=== PATIENT | male | born 2000 | race Caucasian/White ===

== ENCOUNTER → 2020-06-01 | Outpatient (CLI) | payer SELFPAY | LOC: M LABSMTC 12:55 | PROVIDERS: ATTEND Pediatrics | DX: Z11.59 Encounter for screening for other viral diseases (principal); Z20.828 Contact with and (suspected) exposure to other viral communicable diseases ==

== ENCOUNTER 2021-08-06 10:10 | Emergency (ER) | payer OTHER, SELFPAY ==
[~2021-08-06] VITALS: Ht 190.5 cm; Wt 98.8 kg
[2021-08-06] MEDS ORDERED: KETOROLAC 60MG 2ML VIAL IM ONE (11:05)
--- NOTE | 2021-08-06 11:44 | REP ---
INDICATION: Back pain x 7 mos. COMPARISON: None. TECHNIQUE: Three AP and lateral views thoracic spine. FINDINGS: There is no compression fracture or malalignment. There is normal thoracic kyphosis. I do not see significant degenerative disc change. Posterior elements are intact. IMPRESSION: Negative thoracic spine series. <Electronically signed by Reinaldo Galan > 08/06/21 [id number]
--- NOTE | 2021-08-06 11:45 | REP ---
INDICATION: Back pain x 7 mos. COMPARISON: None. TECHNIQUE: Five views lumbosacral spine. FINDINGS: There is no compression fracture or malalignment. There is normal lumbar lordosis. Disc spaces are well preserved. Posterior elements are intact. IMPRESSION: Negative lumbosacral spine series. <Electronically signed by Reinaldo Galan > 08/06/21 [id number]
[2021-08-06] MEDS ORDERED: CYCL-707 PO (12:09)
[2021-08-06] MEDS ORDERED: PRED20TA PO (12:09)
[2021-08-06] MEDS ORDERED: MOBI4TAB PO (12:09)
[2021-08-06 12:29] VITALS: BP 135/60
== END 2021-08-06 12:27 | disposition home or self-care (01) ==
LOC: M ED 10:10
DX: R51.9 Headache, unspecified (principal); M54.9 Dorsalgia, unspecified; Z88.0 Allergy status to penicillin
CPT/HCPCS: 72072; 72110; 96372; 99283; J1885